=== PATIENT | female | born 1950 | race Caucasian/White ===

== ENCOUNTER 2019-07-28 03:01 | Emergency (ER) | payer MEDICARE ==
[~2019-07-28] VITALS: Ht 177.8 cm; Wt 95.3 kg
== END 2019-07-28 03:56 | disposition home or self-care (01) ==
LOC: FSED 03:01
DX: S40.262A Insect bite (nonvenomous) of left shoulder, initial encounter (principal); S40.261A Insect bite (nonvenomous) of right shoulder, initial encounter; Z87.891 Personal history of nicotine dependence
CPT/HCPCS: 99283